=== PATIENT | female | born 1975 | race Caucasian/White ===

== ENCOUNTER 2017-02-26 18:32 | Emergency (ER) | payer MEDICAID ==
[~2017-02-26] VITALS: Ht 177.8 cm; Wt 99.8 kg
[2017-02-26 19:54] VITALS: BP 129/90
--- NOTE | 2017-02-26 20:27 | NUR ---
PT TAKEN TO BED 6
--- NOTE | 2017-02-26 20:28 | NUR ---
41 Y/O F W/C/O THROBBING PAIN TO RECTAL AREA R/T HEMORROIDS X 3 DAYS. LAST MED FOR PAIN IBUPROFEN TODAY AT 1500.
--- NOTE | 2017-02-26 20:43 | NUR ---
Dr. De La Rosa evaluating patient at bedside.
--- NOTE | 2017-02-26 21:07 | NUR ---
Dr. 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
--- NOTE | 2017-02-26 21:10 | NUR ---
RECTAL exam performed by LAN with ME at bedside for entire examination. Patient tolerated procedure WELL. Patient assisted to position of comfort after examination.
[2017-02-26 21:30] VITALS: BP 122/88
--- NOTE | 2017-02-26 21:30 | NUR ---
Patient discharged with v/s stable. Written and verbal after care instructions given and explained. Patient alert, oriented and verbalized understanding of instructions. Ambulatory with steady gait. All questions addressed prior to discharge. ID band removed. Patient advised to follow up with PMD. Rx of anusol hc 25mg bid, iburofen 800mg tid/prn, norco 10mg-325mg q6hrs/prn, docusate 250mg bid/prn given. Patient educated on indication of medication including possible reaction and side effects. Opportunity to ask questions provided and answered.
== END 2017-02-26 21:30 | disposition home or self-care (01) ==
LOC: MED 18:32
DX: K64.4 Residual hemorrhoidal skin tags (principal); E11.9 Type 2 diabetes mellitus without complications
CPT/HCPCS: 82948; 99283